=== PATIENT | male | born 1985 | race Caucasian/White ===

== ENCOUNTER 2016-11-19 07:58 | Outpatient (CLI) | payer OTHER ==
[2016-11-19 08:45] LABS: eGFR (African) > 60; eGFR (Non-African) > 60
== END 2016-11-19 08:00 ==
LOC: LAB 07:58
PROVIDERS: ATTEND Physician Assistant
DX: R35.0 Frequency of micturition (principal); R39.12 Poor urinary stream
CPT/HCPCS: 36415; 80053; 84153

== ENCOUNTER 2017-12-21 08:43 | Outpatient (CLI) | payer OTHER ==
[2017-12-21 09:09] LABS: MEAN CORPUSCULAR VOLUME 90.6 fl (80.0-100.0)
[2017-12-21 09:45] LABS: eGFR (African) > 60; eGFR (Non-African) > 60
== END 2017-12-21 09:28 ==
LOC: LAB 08:43
PROVIDERS: ATTEND Family Medicine
DX: M79.1 Myalgia (principal); R53.83 Other fatigue
CPT/HCPCS: 36415; 80053; 82607; 83735; 84443; 85027

== ENCOUNTER 2019-03-08 14:16 | Outpatient (CLI) | payer OTHER ==
--- NOTE | 2019-03-09 08:19 | Diagnostic Imaging Report ---
[facility]ILT [facility] [id number] [address] [facility] [address] [place], [place]. [address] Report Submission Date: March 08, 2019 2:50:20 PM CDT Patient Study Name: LAZ REYNOLDS Date: March 08, 2019 2:33:41 PM CDT Modality Type: DX Gender: M Description: CHEST 2VIEW : 83 Institution: [facility] Physician: XOCHILT CORBETT EXAMINATION: CHEST 2VIEW HISTORY: CXR, CHEST PAIN, PT STATES PAIN FOR SEVERAL YEARS, WORSENING IN THE LAST MONTH COMPARISON: None FINDINGS: There is no focal consolidation, pleural effusion, or pneumothorax. The cardiomediastinal silhouette is normal. The visible bony thorax is intact. IMPRESSION: No acute pulmonary process. Electronically signed on March 08, 2019 2:50:20 PM CDT by: Keenan HEREDIA
== END 2019-03-08 14:18 ==
LOC: RAD 14:16
PROVIDERS: ATTEND Family Medicine
DX: R07.89 Other chest pain (principal)
CPT/HCPCS: 71046

== ENCOUNTER 2019-03-10 09:08 | Outpatient (CLI) | payer OTHER ==
[2019-04-23 16:50] LABS: eGFR (Non-African) > 60
[2019-04-23 16:51] LABS: HDL 25 mg/dL (>40)
== END 2019-03-10 09:10 ==
LOC: LAB 09:08
PROVIDERS: ATTEND Family Medicine
DX: R07.89 Other chest pain (principal)
CPT/HCPCS: 36415; 80053; 80061; 84443; 85025

== ENCOUNTER 2019-07-02 07:57 | Day surgery (SDC) | payer OTHER ==
[2019-07-02] MEDS ORDERED: LACTATED RINGERS 1,000 ML IV.SOLN IV ONE (08:48)
[2019-07-02] MEDS ORDERED: LIDOCAINE HCL 2% PF 100MG/5ML VIAL IJ ONE (08:48)
[2019-07-02] MEDS ORDERED: PROPOFOL 200 MG/20 ML VIAL IV ONE (08:48)
--- NOTE | 2019-07-04 12:19 | GI Report ---
DATE OF PROCEDURE: 07/02/2019 REFERRING PHYSICIAN: Dr. Arias. PROCEDURE PERFORMED: Endoscopy with biopsies. SURGEON: Ann Marie Mansfield M.D., Mauro INDICATION FOR PROCEDURE: The patient is a 34-year-old man who has had atypical chest pain. He has had a number of episodes this past month. He did have a stress test in March which was negative. The pain sometimes radiates to his left arm. He denies it occurring with eating, or any particular activity such as lifting. He denies difficulty swallowing. He is 89, weighs 228 and does carry some of that weight centrally. Family history is positive for acid peptic disease. He does not smoke or chew tobacco. He denies taking much nonsteroidals. PROCEDURE MEDICATION: Propofol, as per Anesthesia. DESCRIPTION OF PROCEDURE: The Olympus video endoscope was passed through the esophagus under direct visualization. He does have a small hiatal hernia and a grade 2 esophagitis. We did biopsy at the GE junction. The cardia of the stomach shows the small hiatal hernia. The fundus, body and antrum mild gastritis. Biopsies in the antrum for H. pylori. There was some bile present in the stomach. The duodenal bulb, first and second part of the duodenum were examined and were normal. The patient tolerated the procedure well. FINDINGS: 1. Reflux esophagitis. 2. Small hiatal hernia. RECOMMENDATIONS: 1. Pending the biopsies would elevate his bed about 3 inches, small meals, watch about weight gain. A 5-10 lbs weight loss frequently improves reflux. He should take his PPI either before breakfast or supper, and an antacid at bedtime like TUMS or Gaviscon. 2. Follow up biopsy results. ANN MARIE MANSFIELD M.D., F.A.C.P. VILMA/miguelito Job#: [id number] cc: Dr. Juana HEREDIA
== END 2019-07-02 09:50 | disposition home or self-care (01) ==
LOC: OPSURG 07:57
PROVIDERS: ATTEND Internal Medicine Gastroenterology
DX: K44.9 Diaphragmatic hernia without obstruction or gangrene (principal)
CPT/HCPCS: 43239; J2001; J2704; J7120